=== PATIENT | female | born 2000 | race Caucasian/White ===

== ENCOUNTER 2021-12-28 07:15 | Day surgery (SDC) | payer MEDICAID ==
[~2021-12-28] VITALS: Ht 152.4 cm; Wt 55.8 kg
[2021-12-28] MEDS ORDERED: MEPERIDINE 100 MG INJ. 100 MG/ML VIAL ONE (07:55)
[2021-12-28] MEDS ORDERED: SIMETHICONE 40 MG/0.6 ML ML ONE (07:55)
[2021-12-28 08:14] LABS: HCG,QUAL RESULT NEGATIVE (NEGATIVE)
[2021-12-28] MEDS: MIDAZOLAM HCL 5 MG/5 ML VIAL ONE ×4 (08:26→08:36)
[2021-12-28] MEDS ORDERED: DIPHENHYDRAMINE INJ 50 MG/ML VIAL ONE (08:35)
[2021-12-28 12:40] VITALS: BP_SYST 110
== END 2021-12-28 10:08 | disposition home or self-care (01) ==
LOC: SDS 07:15 → SMU 07:22 → SDS 10:08
PROVIDERS: ATTEND Internal Medicine Gastroenterology
DX: K29.50 Unspecified chronic gastritis without bleeding (principal); F17.210 Nicotine dependence, cigarettes, uncomplicated; Z79.899 Other long term (current) drug therapy; Z20.822 Contact with and (suspected) exposure to COVID-19
CPT/HCPCS: 36415 ×2; 43239; 87081; 84703; 88305; 88312; 88313; 99152; U0003; G0378; J1200; J2250; J2175